=== PATIENT | female | born 1935 | race Caucasian/White ===

== ENCOUNTER → 2017-09-02 14:49 | Outpatient (CLI) | payer OTHER, SELFPAY | PROVIDERS: Family Provider Internal Medicine; PCP Internal Medicine; Visit Provider Internal Medicine | DX: L89.323 Pressure ulcer of left buttock, stage 3 (principal) | CPT/HCPCS: 99213 ==

== ENCOUNTER → 2018-03-28 15:10 | Outpatient (CLI) | payer OTHER, SELFPAY ==
--- NOTE | 2018-03-28 | DI.MG.S_ITS ---
BILATERAL DIGITAL SCREENING MAMMOGRAM 3D/2D WITH CAD: 03/28/2018 CLINICAL: Routine screening. Family history of breast cancer. Comparison is made to exams dated: 02/19/2017 mammogram, 01/29/2017 mammogram, and 01/27/2016 mammogram - [facility]. The tissue of both breasts is heterogeneously dense. This may lower the sensitivity of mammography. Current study was also evaluated with a Computer Aided Detection (CAD) system. There are benign calcifications in both breasts. There also is a benign biopsy clip in the right breast. No significant masses, calcifications, or other findings are seen in either breast. There has been no significant interval change. IMPRESSION: There is no mammographic evidence of malignancy. A 1 year screening mammogram is recommended. This exam was interpreted at Station ID: [id number]. NOTE: For mammograms, a report in lay terms will be sent to the patient. Approximately 15% of breast malignancies will not be visualized mammographically. In the management of a palpable breast mass, a negative mammogram must not discourage biopsy of a clinically suspicious lesion. Electronically Signed By: Harvey camp/roger:03/28/2018 16:45:43 letter sent: Normal Exam ACR BI-RADS Category 2: Benign Finding(s) 3342F
== END ==
PROVIDERS: Family Provider Internal Medicine; PCP Internal Medicine; Visit Provider Internal Medicine
DX: Z12.31 Encounter for screening mammogram for malignant neoplasm of breast (principal); Z80.3 Family history of malignant neoplasm of breast
CPT/HCPCS: 77063; 77067

== ENCOUNTER → 2018-04-02 14:19 | Outpatient (CLI) | payer OTHER, SELFPAY ==
--- NOTE | 2018-04-02 | DI.RAD.S_ITS ---
This blank DEXA report has been sent in error by the PACS system. The correct and complete report will be forthcoming in 1-2 days. Thank you for your patience and understanding. Dictated by: Omar Love M.D. on 04/02/2018 at 16:19 Approved by: Omar Love M.D. on 04/02/2018 at 16:19
== END ==
PROVIDERS: Family Provider Internal Medicine; PCP Internal Medicine; Visit Provider Internal Medicine
DX: M85.852 Other specified disorders of bone density and structure, left thigh (principal); Z78.0 Asymptomatic menopausal state; F17.200 Nicotine dependence, unspecified, uncomplicated
CPT/HCPCS: 77080

== ENCOUNTER → 2018-07-08 14:18 | Outpatient (REF) | payer OTHER, SELFPAY | LOC: LAB 14:18 | PROVIDERS: Visit Provider Internal Medicine | DX: R05 Cough (principal); R50.9 Fever, unspecified | CPT/HCPCS: 87400 ==

== ENCOUNTER → 2019-04-01 10:55 | Outpatient (ROUT) | payer OTHER, SELFPAY ==
[2019-04-01 11:10] LABS: Alanine Aminotransferase 148 IU/L (<35); Albumin Globulin Ratio 0.7 (1.0-2.8); Amylase 31 U/L (30-110); Aspartate Aminotransferase 341 IU/L (14-36); Bilirubin Total 10.7 mg/dL (0.2-1.3); Blood Urea Nitrogen 11 mg/dL (7-17); Calcium 9.2 mg/dL (8.4-10.2); Carbon Dioxide 29 mmol/L (22-32); Chloride 93 mmol/L (98-107); Estimated Glomerular Filt Rate > 60.0 mL/min (>60); Globulin 4.1 g/dL (1.7-4.1); Glucose 156 mg/dL (80-110); HEMOLYSIS < 15 (0-50); Lipase 51 U/L (23-300); Potassium 4.3 mmol/L (3.4-5.1); Sodium 131 mmol/L (137-145); Total Protein 7.1 g/dL (6.3-8.2)
[2019-04-01 11:16] LABS: Add Manual Diff / Slide Review NO; Alkaline Phosphatase 1413 U/L (38-126); Basophils Absolute Auto 100 /uL (0-100); Basophils Percent Auto 0.8 % (0-2); Eosinophils Absolute Auto 400 /uL (0-450); Eosinophils Percent Auto 4.1 % (2-4); Hematocrit 33.4 % (36-46); Hemoglobin 11.7 g/dL (12.0-16.0); Lymphocytes Absolute Auto 1600 /uL (1100-4500); Lymphocytes Percent Auto 15.1 % (25-40); Mean Corpuscular HGB Conc 35.2 % (30-36); Mean Corpuscular Hemoglobin 33.2 PG (26-34); Mean Corpuscular Volume 94.5 fL (80-100); Monocytes Absolute Auto 800 /uL (0-900); Monocytes Percent Auto 7.3 % (3-14); Neutrophils Absolute Auto 7500 /uL (1500-7000); Neutrophils Percent Auto 72.7 % (50-75); Platelet Count 349 X10^3/uL (150-400); Red Blood Cell Count 3.54 X10^6/uL (4.0-5.2); Red Cell Distribution Width 13.2 % (11.6-14.8); White Blood Cell Count 10.3 X10^3/uL (4.5-11.0)
== END ==
PROVIDERS: Family Provider Internal Medicine; PCP Internal Medicine; Visit Provider Internal Medicine
DX: R17 Unspecified jaundice (principal)
CPT/HCPCS: 80053; 82150; 83690; 85025

== ENCOUNTER → 2019-04-01 11:23 | Outpatient (CLI) | payer OTHER, SELFPAY ==
--- NOTE | 2019-04-01 12:11 | DI.CT.S_ITS ---
PROCEDURE: CT ABDOMEN PELVIS W CON INDICATIONS: Unspecified jaundice TECHNIQUE: After the administration of oral and intravenous contrast, 5 mm thick sections acquired from the diaphragms to the symphysis. 5 mm thick coronal and sagittal reformats were performed. For radiation dose reduction, the following was used: automated exposure control, adjustment of mA and/or kV according to patient size. COMPARISON: [facility], CT, ABDOMEN/PELVIS WITH CONTRAST, 11/07/2011, 13:44. FINDINGS: Image quality: Excellent. ABDOMEN: Lung bases: Bibasilar scattered atelectasis is seen. No pleural effusion or pneumothorax. Heart size is normal. Solid organs: Liver is normal in size and enhancement. Gallbladder is distended, no discrete calcified gallstone is seen. There is diffuse intrahepatic biliary ductal dilatation with common hepatic duct measures up to 1.1 cm in diameter. Marked distention of common bile duct is also seen and measures up to 1.7 cm in size. There is ill-defined hypodense lesion involving head and uncinate process of pancreas and measures up to 3.6 x 2.1 x 2.1 cm in size with mass effect on adjacent third portion of duodenum and proximal jejunum. With associated proximal small bowel wall thickening. There is also mass effect on distal common bile that at this level with abrupt narrowing of the common bile duct. Finding is concerning for malignant process involving head of pancreas. Mild pancreatic ductal dilatation is seen. No discrete lesion is noted in body and tail of pancreas. No peripancreatic fluid collection. Spleen is normal in size and enhancement. No adrenal nodules. Kidneys are normal in size and enhancement, without hydronephrosis. Peritoneum and bowel: There is no evidence of bowel obstruction. Mild fecal stasis in the colon is seen with fecal distention of sigmoid colon and rectum. No other area of abnormal bowel wall thickening. No free fluid or free air. Nodes and vessels: Subcentimeter lymph nodes are seen scattered in upper abdominal mesentery adjacent to the above mentioned pancreatic head mass. No retroperitoneal lymphadenopathy. Aorta and inferior vena cava are normal in caliber. Miscellaneous: No ventral hernias. PELVIS: Genitourinary: Bladder wall thickness is normal. Miscellaneous: No inguinal hernias or adenopathy. Bones: No suspicious bony lesions. No vertebral body compression fractures. Grade 1 anterolisthesis of L4 on L5 and L5 on S1 is seen. Degenerative disc disease at L4-5 and L5-S1 levels are also noted. IMPRESSION: 1. Finding is suggestive of a 3.6 x 2.1 x 2.1 cm pancreatic head mass with significant mass effect on distal common bile duct. Invasion of the common bile duct cannot be excluded. There is also mass effect on the adjacent duodenum and proximal jejunum. No lesion is noted in body and tail of pancreas. No peripancreatic fluid collection. 2. Marked intrahepatic and extrahepatic biliary ductal dilatation. 3. Subcentimeter lymph node seen in the upper abdominal mesentery surrounding the above mentioned mass. No retroperitoneal lymphadenopathy. 4. No bowel obstruction. No free fluid or free air. Dictated by: Omar Love M.D. on 04/01/2019 at 13:02 Approved by: Omar Love M.D. on 04/01/2019 at 13:10
== END ==
PROVIDERS: Family Provider Internal Medicine; PCP Internal Medicine; Visit Provider Internal Medicine
DX: R17 Unspecified jaundice (principal); K86.89 Other specified diseases of pancreas; K83.8 Other specified diseases of biliary tract
CPT/HCPCS: 74177; 80053; 82150; 83690; 85025; Q9967

== ENCOUNTER → 2019-04-02 14:58 | Outpatient (CLI) | payer OTHER, SELFPAY ==
--- NOTE | 2019-04-02 | DI.MG.S_ITS ---
BILATERAL DIGITAL SCREENING MAMMOGRAM 3D/2D WITH CAD: 04/02/2019 CLINICAL: Routine screening. Family history of breast cancer. Comparison is made to exams dated: 03/28/2018 mammogram, 02/19/2017 mammogram, 01/29/2017 mammogram, and 01/27/2016 mammogram - [facility]. The tissue of both breasts is heterogeneously dense. This may lower the sensitivity of mammography. Current study was also evaluated with a Computer Aided Detection (CAD) system. There are benign calcifications in both breasts. There also is a biopsy clip in the right breast. No significant masses, calcifications, or other findings are seen in either breast. There has been no significant interval change. IMPRESSION: There is no mammographic evidence of malignancy. A 1 year screening mammogram is recommended. This exam was interpreted at Station ID: [id number]. NOTE: For mammograms, a report in lay terms will be sent to the patient. Approximately 15% of breast malignancies will not be visualized mammographically. In the management of a palpable breast mass, a negative mammogram must not discourage biopsy of a clinically suspicious lesion. Electronically Signed By: Jessee robertson/roger:04/02/2019 18:48:37 letter sent: Normal Exam ACR BI-RADS Category 2: Benign Finding(s) 3342F
--- NOTE | 2019-04-28 10:03 | ONC.MSW ---
Description: New Referral Navigation T/C Activity: Called pt to confirmed that we have her referral, and her initial appt. time will be next at 10:00am, 9:40am check-in time. Explained role of navigation and availability of ongoing support. Will plan to meet with pt for f/f when she arrives in clinic for her appt. No immediate needs identified at this time.
== END ==
PROVIDERS: PCP Internal Medicine; Visit Provider Internal Medicine
DX: Z12.31 Encounter for screening mammogram for malignant neoplasm of breast (principal); Z80.3 Family history of malignant neoplasm of breast
CPT/HCPCS: 77063; 77067

== ENCOUNTER → 2019-05-07 10:29 | Oncology outpatient (ONC) | payer OTHER, SELFPAY ==
[2019-05-07 11:21] VITALS: BP 114/60; PULSE 90; RESP 18; TEMP 36.3; O2SAT 99
--- NOTE | 2019-05-07 11:31 | ONC.CONS ---
History of Present Illness - Data of Consult Patient: new to practice Consult date: 05/07/19 Requesting Physician: Parth Benavidez MD Primary Care Provider: Parth Benavidez MD - Consult Narrative Reason for consult: Pancreatic mass Narrative: Telma Patel is a 83 year old female residing at [facility]. Telma said that the facility staff first noticed her jaundice about later 03/2019 and early 2019. Telma reports no other signs or symptoms at that time. No n/v. No abd pain. But admits to decreased appetite. Her weight has also been coming down gradually. Her weight was 124 lb today. Her regular weight has been around [address] abdomen and pelvis with contrast on 04/01/2019. The scan showed a 3.6 x 2.1 x 2.1 cm pancreatic head mass with significant mass effect on distal common bile duct. There was also mass effect on the adjacent duodenum and proximal jejunum. There were marked intra-hepatic and extra-hepatic biliary ductal dilation. There was subcentimeter lymph node in the upper abdomen mesentry surrounding the above mentioned mass. No retroperitoneal lymphadenopathy. Her PCP Dr. Pramod Mendoza evaluated the patient on 04/14/2019 and referred to [facility]. She has back pain due to spinal stenosis for a long time. She is barely able able to walk by herself due to arthritis and the back pain. CC: Sully Sherman MD - Code Status Resuscitation Status: Do Not Resuscitate Home Medications and Allergies Home Medications Medication Instructions Recorded Confirmed Type hydrocodone-acetaminophen [Vicodin 1 tab PO QIDP #0 10/22/12 02/24/19 History HP] olanzapine 7.5 mg PO Q DAY #0 10/22/12 02/24/19 History docusate sodium 200 mg PO QDAY #0 06/06/16 02/24/19 History ACETAMINOPHEN 325 mg OR Q6HP PRN #0 07/30/16 02/24/19 History cholecalciferol (vitamin D3) 2,000 iu OR QDAY #0 07/30/16 02/24/19 History [Vitamin D3] lovastatin 20 mg tablet 40 mg PO DAILY tab 02/04/18 02/24/19 History morphine 30 mg capsule,extended 30 mg PO DAILY 02/04/18 02/24/19 History release 24 hr multiphase bupropion HCl 150 mg 24 hr tablet, 150 mg PO QAM #30 tab 02/24/19 02/24/19 Rx extended release Allergies Allergy/AdvReac Type Severity Reaction Status Date / Time gabapentin Allergy Unknown Verified 02/24/19 13:58 Medical History - Medical, Surgical, Family History Medical History: Medical History (Last Updated 05/07/19 @ 12:00 by Sully Sherman MD) Arthritis Dermatitis Perforated gastric ulcer Pressure ulcer Spinal stenosis Surgical History: Surgical History (This Medical Record has been edited. Action required.) History of gastric surgery Family History: Family History (This Medical Record has been edited. Action required.) Other Breast cancer - Social History Smoking Status: Former smoker (2 cig/day, quitted in late 2018) Substance Use Type: does not use Alcohol Intake: current (wine about in the evening) Review of Systems - Patient Self-Reported Symptoms SR Constitution: Weight loss/gain SR ears, nose, mouth, throat issues: Changes in taste SR Skin issues: Skin color changes SR Musculoskeletal issues: Muscle weakness, Difficulty walking All systems PM: reviewed and no additional remarkable complaints except as stated Exam Vital signs: Last Vital Signs Temp 97.4 F L 05/07/19 11:21 Pulse 90 05/07/19 11:21 Resp 18 05/07/19 11:21 BP 114/60 05/07/19 11:21 Pulse Ox 99 05/07/19 11:21 ECOG 2 Narrative: Gen: WDWN, NAD, pleasant and cooperative. Accompanied by her 2 cousins. Patient is in wheelchair. Generalized severe jaundice noticed. HEENT: NCAT, EOMI, PERRLA, icteric sclera noted Neck: Supple, No palpable thyromegaly . One lymph node palpable in the right supraclavicular fossa measuring 1 cm. . Respiratory: CTAB, no wheezes audible. No JVD Cardiovascular: RRR, S1 and S2 normal, no M/G/R. Abdomen: Soft, mildly tender upon palpation. Liver is enlarged palpable about 3-4 cm below the right costal margin. Spleen is not palpable on my physical examination. Extremities: No LE pitting edema. But with skin scratches. Lymphatic: Right supraclavicular lymph node palpable. No other palpable lymph nodes. Neurological: AOx3, CN II-XII grossly intact. No focal motor or sensory deficit. Psychiatric: Normal affect; normal thought process; no depression, no anxiety. Results - Labs Reviewed - Imaging Additional studies: Procedures Excision of lesion of adrenal gland (12/10/11) Other enterostomy (10/22/12) Partial gastrectomy with anastomosis to jejunum (10/22/12) Assessment and Plan (1) Mass of pancreas Overview: 83-year-old female living in assisted facility presents with jaundice. Imaging study of CT abdomen and pelvis showed mass at the head of the pancreas with with intra- and extra-bile duct dilation. Assessment: I talked with her and her 2 cousins that the clinical presentation is highly suspicious for pancreatic cancer. Given the obstruction and the severe jaundice, I talked with them that she needs to see security systems installer for ERCP with stent placement and also for possible biopsy to confirm the diagnosis. I recommended Jeri Rice as soon as possible. Patient voiced understanding. Of note patient has a DNR code status. Plan: Refer to GI oncology RTC in 3 week for follow up visit.
--- NOTE | 2019-05-07 11:34 | ONC.MSW ---
Description: New Pt F/F Visit Activity: Met with pt and her 2-cousins (support people) to introduce myself f/f, discuss resources and support available, and answered some of their questions re: the process of what happens in oncology once you've met with the provider. Pt resides at [facility], has multiple co-morbidities including open wounds on her buttocks, which are being cared for by the facility. Her skin is dark yellow, as are her eyes. She denies pain other than ongoing arthritis and spinal stenosis. Plan: She has no immediate needs identified at this time, PROCESS ENGINEERING TECHNICIAN will continue to monitor adjustment to disease and next steps for treatment.
--- NOTE | 2019-05-11 15:06 | ONC.MSW ---
Description: T/C from pt re: treatment questions Activity: Pt called to discuss her concerns and decision towards not wanting to pursue the surgery at [facility], and not wanting to go through treatment, due to her multiple other co-morbidities and limited functional status. DRESSMAKER HELPER assisted with goals conversation. Pt and DRESSMAKER HELPER agreed on a plan for pt to come in for one last visit with Dr. Sherman, and that DRESSMAKER HELPER would also fax [facility] with an informational visit request. Completed both of these tasks. Scheduling will f/u with calling pt with next available appt. with Dr. Sherman.
--- NOTE | 2019-05-18 16:03 | ONC.MSW ---
Description: T/C re: Hospice Status Activity: Pt called to share that she has chosen to go forward with hospice services rather than pursue any further Oncology treatments. Will forward to scheduling to close her chart.
== END ==
PROVIDERS: PCP Internal Medicine; Visit Provider Internal Medicine Hematology & Oncology
DX: K86.9 Disease of pancreas, unspecified (principal); R17 Unspecified jaundice; Z87.891 Personal history of nicotine dependence
CPT/HCPCS: 99204; 99214